=== PATIENT | male | born 1940 | race Caucasian/White ===

== ENCOUNTER 2017-01-14 13:45 | Outpatient (CLI) | payer MEDICARE, OTHER | END 2017-01-14 13:46 | disposition home or self-care (01) | DX: R80.9 Proteinuria, unspecified (principal); N18.3 Chronic kidney disease, stage 3 (moderate); I70.1 Atherosclerosis of renal artery; I10 Essential (primary) hypertension ==

== ENCOUNTER 2017-01-23 15:33 | Outpatient (CLI) | payer MEDICARE, OTHER | END 2017-01-23 15:34 | disposition home or self-care (01) | DX: R06.00 Dyspnea, unspecified (principal) ==

== ENCOUNTER 2017-01-25 14:46 | Outpatient (CLI) | payer MEDICARE, OTHER | END 2017-01-25 14:47 | disposition home or self-care (01) | DX: N18.3 Chronic kidney disease, stage 3 (moderate) (principal); I50.22 Chronic systolic (congestive) heart failure; I12.9 Hypertensive chronic kidney disease with stage 1 through stage 4 chronic kidney disease, or unspecified chronic kidney disease ==

== ENCOUNTER 2017-02-08 13:33 | Emergency (ER) | payer MEDICARE, OTHER ==
[2017-02-08] MEDS ORDERED: IOPAMIDOL-300 50 ML VIAL PO ONE (18:23)
== END 2017-02-08 19:35 | disposition home or self-care (01) ==
DX: K59.00 Constipation, unspecified (principal); N20.0 Calculus of kidney; K57.30 Diverticulosis of large intestine without perforation or abscess without bleeding; E27.8 Other specified disorders of adrenal gland; Z87.891 Personal history of nicotine dependence; I13.0 Hypertensive heart and chronic kidney disease with heart failure and stage 1 through stage 4 chronic kidney disease, or unspecified chronic kidney disease; I50.9 Heart failure, unspecified; N18.9 Chronic kidney disease, unspecified
CPT/HCPCS: 36415; 74020; 74176; 80053; 81001; 83690; 85025; 99283; 99284; Q9967

== ENCOUNTER 2017-02-14 15:27 | Outpatient (CLI) | payer MEDICARE, OTHER | END 2017-02-14 15:28 | disposition home or self-care (01) | DX: N18.3 Chronic kidney disease, stage 3 (moderate) (principal); I50.22 Chronic systolic (congestive) heart failure; I10 Essential (primary) hypertension ==

== ENCOUNTER 2017-04-12 13:32 | Outpatient (CLI) | payer MEDICARE, OTHER ==
[2017-04-12 18:31] LABS: CALCIUM 8.8 mg/dL (8.5-10.3); CREATININE 2.2 mg/dL (0.6-1.2); PHOSPHORUS 3.1 mg/dL (2.5-4.6); POTASSIUM 4.6 mmol/L (3.5-5.0); URIC ACID 6.8 mg/dL (2.6-7.2)
== END 2017-04-12 13:33 | disposition home or self-care (01) ==
LOC: LAB.F 13:32
PROVIDERS: ATTEND Internal Medicine Nephrology
DX: I50.30 Unspecified diastolic (congestive) heart failure (principal); N18.3 Chronic kidney disease, stage 3 (moderate); I12.9 Hypertensive chronic kidney disease with stage 1 through stage 4 chronic kidney disease, or unspecified chronic kidney disease; R80.9 Proteinuria, unspecified
CPT/HCPCS: 36415; 80069; 83880; 83970; 84550

== ENCOUNTER 2017-09-17 13:16 | Outpatient (CLI) | payer MEDICARE, OTHER ==
[2017-09-17 18:04] LABS: CALCIUM 8.6 mg/dL (8.5-10.3); PHOSPHORUS 2.8 mg/dL (2.5-4.6); POTASSIUM 3.2 mmol/L (3.5-5.0)
== END 2017-09-17 13:17 | disposition home or self-care (01) ==
LOC: LAB.F 13:16
PROVIDERS: ATTEND Internal Medicine Nephrology
DX: I50.30 Unspecified diastolic (congestive) heart failure (principal); R80.9 Proteinuria, unspecified; N18.3 Chronic kidney disease, stage 3 (moderate); I12.9 Hypertensive chronic kidney disease with stage 1 through stage 4 chronic kidney disease, or unspecified chronic kidney disease; I50.22 Chronic systolic (congestive) heart failure
CPT/HCPCS: 36415; 80048; 80069; 83880; 83970; 84550

== ENCOUNTER 2017-10-21 10:47 | Outpatient (CLI) | payer MEDICARE, OTHER | END 2017-10-21 10:48 | disposition home or self-care (01) | LOC: SC 10:47 | PROVIDERS: ATTEND Internal Medicine Pulmonary Disease | DX: G47.33 Obstructive sleep apnea (adult) (pediatric) (principal) | CPT/HCPCS: 99213; G0463; 99212 ==

== ENCOUNTER 2018-01-28 18:00 | Outpatient (CLI) | payer MEDICARE, OTHER ==
[2018-01-28 17:33] LABS: BASOPHILS # (AUTO) 0.1 10^3/uL (0.0-0.1); EOSINOPHILS # (AUTO) 0.1 10^3/uL (0.0-0.7); EOSINOPHILS % (AUTO) 0.8 %; HGB - HEMOGLOBIN 12.2 g/dL (14.0-18.0); LYMPHOCYTES # (AUTO) 2.3 10^3/uL (1.5-3.5); LYMPHOCYTES % (AUTO) 25.1 %; MEAN CORPUSCULAR HEMOGLOBIN 31.2 pg (27.0-31.0); MEAN CORPUSCULAR HGB CONC 34.6 g/dL (32.0-36.0); MEAN CORPUSCULAR VOLUME 90.3 fL (80.0-94.0); MEAN PLATELET VOLUME 8.4 fL (7.4-11.4); MONOCYTES # (AUTO) 1.1 10^3/uL (0.0-1.0); MONOCYTES % (AUTO) 12.3 %; NEUTROPHILS # (AUTO) 5.7 10^3/uL (1.5-6.6); NEUTROPHILS % (AUTO) 60.8 %; PLT - PLATELET COUNT 286 10^3/uL (130-450); RED BLOOD COUNT 3.91 10^6/uL (4.70-6.10); RED CELL DISTRIBUTION WIDTH 13.7 % (12.0-15.0); WHITE BLOOD COUNT 9.3 x10^3/uL (4.8-10.8)
[2018-01-28 17:52] LABS: ALBUMIN 3.9 g/dL (3.2-5.5); ALBUMIN/GLOBULIN RATIO 1.1 (1.0-2.2); ALKALINE PHOSPHATASE 96 IU/L (42-121); ALT ALANINE AMINOTRANSFERASE 17 IU/L (10-60); AST ASPARTATE AMINOTRANSFERASE 27 IU/L (10-42); BILIRUBIN,TOTAL 0.8 mg/dL (0.2-1.0); BUN - BLOOD UREA NITROGEN 22 mg/dL (6-20); CALCIUM 8.3 mg/dL (8.5-10.3); CARBON DIOXIDE - CO2 29 mmol/L (21-32); CHLORIDE 90 mmol/L (101-111); CHOL/HDL RATIO 4.6 (<5.0); CHOLESTEROL 124 mg/dL; CREATININE 2.2 mg/dL (0.6-1.2); GFR - MDRD 29 (>89); GLUCOSE 106 mg/dL (70-100); HDL CHOLESTEROL 27 mg/dL; LDL CHOLESTEROL,CALCULATED 47 mg/dL; LDL/HDL RATIO 1.7 (<3.6); SODIUM 133 mmol/L (135-145); TOTAL PROTEIN 7.6 g/dL (6.7-8.2); VLDL CHOLESTEROL 50 mg/dL
== END 2018-01-28 18:01 | disposition home or self-care (01) ==
LOC: LAB.R 18:00
PROVIDERS: ATTEND Nurse Practitioner Primary Care
DX: N18.4 Chronic kidney disease, stage 4 (severe) (principal); G62.9 Polyneuropathy, unspecified; I50.9 Heart failure, unspecified; E78.5 Hyperlipidemia, unspecified
CPT/HCPCS: 80053; 80061; 83721; 83880; 84443; 85025

== ENCOUNTER 2018-01-31 08:33 | Outpatient (CLI) | payer MEDICARE, OTHER | END 2018-01-31 08:34 | disposition home or self-care (01) | LOC: LAB.F 08:33 | PROVIDERS: ATTEND Internal Medicine | DX: E87.6 Hypokalemia (principal) | CPT/HCPCS: 36415; 84132 ==

== ENCOUNTER 2018-05-06 15:12 | Outpatient (CLI) | payer MEDICARE, OTHER ==
[2018-05-06 18:22] LABS: ALBUMIN 3.8 g/dL (3.2-5.5); CALCIUM 8.9 mg/dL (8.5-10.3); PHOSPHORUS 3.4 mg/dL (2.5-4.6)
== END 2018-05-06 15:13 | disposition home or self-care (01) ==
LOC: LAB.F 15:12
PROVIDERS: ATTEND Internal Medicine Nephrology
DX: D63.1 Anemia in chronic kidney disease (principal); I50.22 Chronic systolic (congestive) heart failure; N18.4 Chronic kidney disease, stage 4 (severe); E87.6 Hypokalemia
CPT/HCPCS: 36415; 80069; 83540; 83880; 83970; 84466; 85014